=== PATIENT | female | born 1935 | race Caucasian/White ===

== ENCOUNTER → 2017-04-30 | Outpatient (CLI) | payer OTHER | END | disposition home or self-care (01) | LOC: PCVCCLINIC 13:27 | PROVIDERS: ATTEND Internal Medicine | DX: I47.1 Supraventricular tachycardia (principal); I12.9 Hypertensive chronic kidney disease with stage 1 through stage 4 chronic kidney disease, or unspecified chronic kidney disease; N18.3 Chronic kidney disease, stage 3 (moderate); E78.5 Hyperlipidemia, unspecified; Z87.898 Personal history of other specified conditions; Z87.440 Personal history of urinary (tract) infections; Z96.652 Presence of left artificial knee joint; Z79.82 Long term (current) use of aspirin | CPT/HCPCS: 93005; G0463 ==